=== PATIENT | male | born 1935 | race Two or more races ===

== ENCOUNTER 2018-10-16 14:46 | Inpatient (IN) | payer OTHER ==
[~2018-10-16] VITALS: Ht 121.9 cm; Wt 76.7 kg
[2018-10-16] MEDS ORDERED: [UNRECOGNIZED DRUG - OTHER] (14:54)
[2018-10-16] MEDS ORDERED: PEPCID20 MG (14:55)
[2018-10-16] MEDS ORDERED: ZOLOFT50 MG (14:55)
[2018-10-16] MEDS ORDERED: SINEMET 25-1001 EACH (14:55)
[2018-10-16] MEDS ORDERED: RESTORIL15 M1 (14:55)
[2018-10-16] MEDS ORDERED: ENALAPRIL MALE2.5 MG (14:56)
[2018-10-16] MEDS ORDERED: FEOSOL325 MG (14:57)
[2018-10-16] MEDS ORDERED: NORVASC10 MG (14:57)
[2018-10-16] MEDS ORDERED: APRESOLINE 10MG10 MG (14:57)
[2018-10-16] MEDS ORDERED: [UNRECOGNIZED DRUG - OTHER] (14:57)
[2018-10-26] MEDS ORDERED: PRE PROTEIN 2030 ML PO (14:25)
[2018-10-26] MEDS ORDERED: PANTOPRAZOLE SO40 MG PO (14:25)
[2018-10-26] MEDS ORDERED: AMLODIPINE BESYL5 MG PO (14:25)
[2018-10-26] MEDS ORDERED: ENALAPRIL MALE2.5 MG PO (14:25)
[2018-10-26] MEDS ORDERED: PYRIDOXINE HCL100 M1 PO (14:25)
[2018-10-26] MEDS ORDERED: Neurin-Sl Tablet Sl SL (14:25)
[2018-10-26] MEDS ORDERED: CLONAZEPAM0.5 MG PO (14:25)
[2018-10-26] MEDS ORDERED: SERTRALINE HCL50 MG PO (14:25)
[2018-10-26] MEDS ORDERED: INTEGRA F CAPS1 EACH PO (14:25)
[2018-10-26] MEDS ORDERED: SINEMET CR 25-1 EACH PO (14:25)
[2018-10-26] MEDS ORDERED: RESTORIL15 MG PO (14:25)
== END 2018-10-26 18:22 | disposition home health service (06) | DRG 571 ==
LOC: ER 14:46 → MEDJ 10-17 11:42 → SEC-K 10-17 11:42 → MEDI 10-17 11:42 → MEDJ 10-18 13:55
PROVIDERS: ADMIT Internal Medicine Geriatric Medicine
PROC: 0T9B70Z Drainage of Bladder with Drainage Device, Via Natural or Artificial Opening (ICD-10-PCS; 2018-10-17)
PROC: 0JB70ZZ Excision of Back Subcutaneous Tissue and Fascia, Open Approach (ICD-10-PCS; principal; 2018-10-18)
PROC: 8E0ZXY6 Isolation (ICD-10-PCS; 2018-10-18)
PROC: 05H533Z Insertion of Infusion Device into Right Subclavian Vein, Percutaneous Approach (ICD-10-PCS; 2018-10-18)
PROC: CP2 Nuclear Medicine, Musculoskeletal System, Tomographic (Tomo) Nuclear Medicine Imaging (ICD-10-PCS; 2018-10-18)
PROC: CW1 Nuclear Medicine, Anatomical Regions, Planar Nuclear Medicine Imaging (ICD-10-PCS; 2018-10-20)
DX: L89.153 Pressure ulcer of sacral region, stage 3 (principal); I96 Gangrene, not elsewhere classified; N39.0 Urinary tract infection, site not specified; M86.68 Other chronic osteomyelitis, other site; G20 Parkinson's disease; F02.80 Dementia in other diseases classified elsewhere, unspecified severity, without behavioral disturbance, psychotic disturbance, mood disturbance, and anxiety; E87.6 Hypokalemia; Z74.01 Bed confinement status; I15.8 Other secondary hypertension; Z16.12 Extended spectrum beta lactamase (ESBL) resistance